=== PATIENT | male | born 1945 | race Hispanic/Latino ===

== ENCOUNTER 2019-08-25 09:45 | Outpatient (CLI) | payer MEDICARE, OTHER ==
--- NOTE | 2019-08-25 10:44 | XRay Report ---
CHEST PA AND LATERAL VIEWS INDICATION: COUGH. COMPARISON: 08/20/2007 FINDINGS: Support devices: None Heart: Normal and unchanged Lungs/Pleura: Lungs are hyperinflated, with scarring in the apices but no acute superimposed disease. IMPRESSION: 1. COPD but no acute disease and no interval change. Signer Name: Waqas Hernández MD Signed: 08/25/2019 10:39 AM Workstation Name: [id number]
== END 2019-08-25 09:46 | disposition home or self-care (01) ==
LOC: SPVIMAG 09:45
PROVIDERS: ATTEND Internal Medicine
DX: J44.9 Chronic obstructive pulmonary disease, unspecified (principal); J98.11 Atelectasis
CPT/HCPCS: 71046